=== PATIENT | male | born 1985 | race Caucasian/White ===

== ENCOUNTER 2017-01-16 12:13 | Emergency (ER) | payer BC ==
[~2017-01-16 12:13] MED LIST: Z.0.NO CURRENT MEDS; ZITH250T PO
[2017-01-16 12:15] VITALS: BP 157/86; PULSE 64; RESP 20; TEMP 97.5; O2SAT 100
--- NOTE | 2017-01-16 12:39 | PD ---
Physical Exam Time Seen by Provider: 12:38 Narrative 31 y/o male here with R sided abdominal pain which started this morning. Vital signs reviewed. Seen at triage desk. Awaiting bed placement. Data Data Last Documented VS Vital Signs Date Time Temp Pulse Resp B/P Pulse Ox O2 Delivery O2 Flow Rate FiO2 01/16/17 12:15 97.5 64 20 157/86 100 Room Air [facility] Medical Record Reviewed: Yes Supervised Visit with [place]: Corona Varma Jan 16, 2017 12:39
[2017-01-16] MEDS ORDERED: SODIUM CHLOR 0.9% 1000 ML INJ 1,000 ML IV SCH (13:17)
[2017-01-16] MEDS ORDERED: ONDANSETRON HCL 4 MG/2 ML VIAL IVP ONE (13:30)
[2017-01-16] MEDS ORDERED: SODIUM CHLORIDE 0.9% FLUSH 10 ML FLUSH IV FLUSH PRN (13:30)
[2017-01-16] MEDS ORDERED: MORPHINE SULFATE 4 MG/ML INJ IV PUSH ONE (13:30)
[2017-01-16 13:40] LABS: AUTOMATED NEUTROPHIL # 4.6 TH/MM3 (1.8-7.7); BASOPHIL # 0.1 TH/MM3 (0-0.2); BASOPHIL % 1.1 % (0.0-2.0); BLOOD, URINE NEG (NEG); EOSINOPHIL # 0.4 TH/MM3 (0-0.4); EOSINOPHIL % 5.2 % (0.0-4.0); GLUCOSE,URINE NEG (NEG); HEMATOCRIT 42.5 % (39.0-51.0); HEMO FLAGS DIFF FINAL; KETONE, URINE NEG (NEG); LYMPH % 27.3 % (9.0-44.0); LYMPHOCYTE # 2.2 TH/MM3 (1.0-4.8); MEAN CELL VOLUME 86.3 FL (80.0-100.0); MEAN CORPUSCULAR HEMOGLOBIN 29.7 PG (27.0-34.0); MEAN CORPUSCULAR HGB CONC 34.4 % (32.0-36.0); MONO % 8.4 % (0.0-8.0); MUCUS URINE FEW /lpf (OCC); NITRITE,URINE NEG (NEG); PLATELET COUNT 237 TH/MM3 (150-450); RED BLOOD COUNT 4.93 MIL/MM3 (4.50-5.90); RED CELL DISTRIBUTION WIDTH 13.3 % (11.6-17.2); URINE COLOR YELLOW (YELLW/STRAW)
[2017-01-16 13:42] LABS: COMMENT (UR) CULT NOT INDICATED; CULTURE IF INDICATED CULT NOT INDICATED
[2017-01-16 14:11] LABS: ALT (GPT) 23 U/L (12-78); ANION GAP 7 MEQ/L (5-15); AST (GOT) 15 U/L (15-37); BLOOD UREA NITROGEN 12 MG/DL (7-18); CHLORIDE 106 MEQ/L (98-107); GLOMERULAR FILTRATION RATE 89 ML/MIN (>89); POTASSIUM 4.2 MEQ/L (3.5-5.1); SODIUM (NA) 140 MEQ/L (136-145)
[2017-01-16 14:13] LABS: ALKALINE PHOSPHATASE 85 U/L (45-117); TOTAL BILIRUBIN ADULT 0.7 MG/DL (0.2-1.0)
--- NOTE | 2017-01-16 14:22 | PD ---
HPI Chief Complaint: Abdominal Pain Time Seen by Provider: 13:13 Travel History International Travel<30 days: No Contact w/Intl Traveler<30days: No Traveled to known affect area: No History of Present Illness HPI 31-year-old male came to the emergency room with history of right sided abdominal pain. Patient says the pain started at 5 in the morning and was severe. He has been nauseous but has not vomited. His appetite is pretty low. He did not eat anything this morning. He went to the urgent care where he was diagnosed with possible cholecystitis and was asked to come to the ER. Patient seemed uncomfortable. Vital signs are stable. Pain does not radiate anywhere except for the one spot on the right side in the middle. [facility] Past Medical History Narrative Medical List of his past medical, surgical, social and family history is reviewed from the nursing note. Diminished Hearing: No Endocrine: Yes (GYNECOMASTIA NEG WORK-UP PER PT) GERD: Yes Hypertension: Yes Migraines: Yes Ulcer: Yes Past Surgical History Eye Surgery: Yes Social History Alcohol Use: Yes (SOCIAL) Tobacco Use: No Substance Use: No Allergies-Medications (Allergen,Severity, Reaction): Coded Allergies: Compazine (Verified Allergy, Mild, Twitching, 06/03/12) Phenergan (Verified Allergy, Mild, Twitching, 06/03/12) Reglan (Verified Allergy, Mild, Twitching, 06/03/12) Comments List of his allergies reviewed from the nursing note. Reported Meds & Prescriptions Reported Meds & Active Scripts Active Ibuprofen 600 Mg Tab 600 Mg PO Q6H PRN Nexium (Esomeprazole DR) 20 Mg Capdr 20 Mg PO DAILY Zithromax Z-Michael (Azithromycin) 250 Mg Tab 250 Mg PO DIRECTED 5 Days 500 MG (2 TABLETS) PO ON DAY 1, THEN 250 MG (1 TABLET) PO ON DAYS 2 TO 5. Reported No Current Meds (Miscellaneous Medication) Misc Narrative Medication List of his home medications reviewed from the nursing note. Review of Systems Except as stated in HPI: all other systems reviewed are Neg Physical Exam Narrative GENERAL: Awake, alert, moderate distress SKIN: Focused skin assessment warm/dry. HEAD: Atraumatic. Normocephalic. EYES: Pupils equal and round. No scleral icterus. No injection or drainage. ENT: No nasal bleeding or discharge. Mucous membranes pink and moist. NECK: Trachea midline. No JVD. CARDIOVASCULAR: Regular rate and rhythm. No murmur appreciated. RESPIRATORY: No accessory muscle use. Clear to auscultation. Breath sounds equal bilaterally. GASTROINTESTINAL: Abdomen soft, tenderness on the McBurney's point, nondistended. Hepatic and splenic margins not palpable. MUSCULOSKELETAL: No obvious deformities. No clubbing. No cyanosis. No edema. NEUROLOGICAL: Awake and alert. No obvious cranial nerve deficits. Motor grossly within normal limits. Normal speech. PSYCHIATRIC: Appropriate mood and affect; insight and judgment normal. Data Data Last Documented VS Vital Signs Date Time Temp Pulse Resp B/P Pulse Ox O2 Delivery O2 Flow Rate FiO2 01/16/17 12:15 97.5 64 20 157/86 100 Room Air Orders Complete Blood Count With Diff (01/16/17 13:17) Comprehensive Metabolic Panel (01/16/17 13:17) Lipase (01/16/17 13:17) Urinalysis - C+S If Indicated (01/16/17 13:17) Ct Abd/Pel W/O Iv Contrast (01/16/17 13:17) Iv Access Insert/Monitor (01/16/17 13:17) Ecg Monitoring (01/16/17 13:17) Oximetry (01/16/17 13:17) Morphine Inj (Morphine Inj) (01/16/17 13:30) Ondansetron Inj (Zofran Inj) (01/16/17 13:30) Sodium Chlor 0.9% 1000 Ml Inj (Ns 1000 M (01/16/17 13:17) Sodium Chloride 0.9% Flush (Ns Flush) (01/16/17 13:30) Ondansetron Inj (Zofran Inj) (01/16/17 14:30) Fentanyl Inj (Fentanyl Inj) (01/16/17 14:30) Labs Laboratory Tests Test 01/16/17 13:20 White Blood Count 8.0 TH/MM3 Red Blood Count 4.93 MIL/MM3 Hemoglobin 14.6 GM/DL Hematocrit 42.5 % Mean Corpuscular Volume 86.3 FL Mean Corpuscular Hemoglobin 29.7 PG Mean Corpuscular Hemoglobin 34.4 % Concent Red Cell Distribution Width 13.3 % Platelet Count 237 TH/MM3 Mean Platelet Volume 8.5 FL Neutrophils (%) (Auto) 58.0 % Lymphocytes (%) (Auto) 27.3 % Monocytes (%) (Auto) 8.4 % Eosinophils (%) (Auto) 5.2 % Basophils (%) (Auto) 1.1 % Neutrophils # (Auto) 4.6 TH/MM3 Lymphocytes # (Auto) 2.2 TH/MM3 Monocytes # (Auto) 0.7 TH/MM3 Eosinophils # (Auto) 0.4 TH/MM3 Basophils # (Auto) 0.1 TH/MM3 CBC Comment DIFF FINAL Differential Comment Urine Color YELLOW Urine Turbidity CLEAR Urine pH 7.0 Urine Specific [place] 1.023 Urine Protein NEG mg/dL Urine Glucose (UA) NEG mg/dL Urine Ketones NEG mg/dL Urine Occult Blood NEG Urine Nitrite NEG Urine Bilirubin NEG Urine Urobilinogen LESS THAN 2.0 MG/DL Urine Leukocyte Esterase NEG Urine RBC 1 /hpf Urine WBC 1 /hpf Urine Mucus FEW /lpf Microscopic Urinalysis Comment CULT NOT INDICATED Sodium Level 140 MEQ/L Potassium Level 4.2 MEQ/L Chloride Level 106 MEQ/L Carbon Dioxide Level 27.0 MEQ/L Anion Gap 7 MEQ/L Blood Urea Nitrogen 12 MG/DL Creatinine 0.98 MG/DL Estimat Glomerular Filtration 89 ML/MIN Rate Random Glucose 86 MG/DL Calcium Level 9.0 MG/DL Total Bilirubin 0.7 MG/DL Aspartate Amino Transf 15 U/L (AST/SGOT) Alanine Aminotransferase 23 U/L (ALT/SGPT) Alkaline Phosphatase 85 U/L Total Protein 8.0 GM/DL Albumin 4.1 GM/DL Lipase 296 U/L [facility] Medical Decision Making Medical Screen Exam Complete: Yes Emergency Medical Condition: Yes Medical Record Reviewed: Yes Differential Diagnosis Acute appendicitis, acute cholecystitis, acute diverticulitis, abdominal pain NOS Narrative Course 2:31 PM blood test results of back and are all within normal limit. UA is within normal limit. CT abdomen and pelvis is negative for cholelithiasis or acute appendicitis. Patient initially was given morphine for the pain with Zofran but he got nauseous. He says his pain is still there. I have ordered fentanyl but at this point I will discharge him home since his test have come back normal. Procedures EKG Prior to Arrival: No Diagnosis Primary Impression: Abdominal pain Qualified Code: R10.31 - Right lower quadrant abdominal pain Referrals: Primary Care Physician Additional Instructions: Please return to the ER if the symptoms worsen or any other new concerns. Follow-up with your primary care next couple days if possible. Take clear liquid diet only for the next 48 hours. He can take Tylenol/Motrin/Advil/ ibuprofen if the pain worsens. Med/Other Pt SpecificInfo: Prescription(s) given Scripts Ibuprofen 600 Mg [id number] Mg PO Q6H PRN (Pain/Inflammation) #40 TAB Ref 0 Prov:Soheila Tapia MD 01/16/[address] (Nexium)20 Mg Capdr20 Mg PO DAILY #30 CAP Ref 0 Prov:Soheila Tapia MD 01/16/17 Disposition: 01 DISCHARGE HOME Condition: Stable Soheila Tapia MD Jan 16, 2017 14:22
--- NOTE | 2017-01-16 14:24 | RADRPT ---
EXAM DATE/TIME: 01/16/2017 14:00 [facility] COMPARISON: CT ABDOMEN & PELVIS W CONTRAST, October 11, 2007, 6:27. INDICATIONS : Right side pain starting today. ORAL CONTRAST: No oral contrast ingested. RADIATION DOSE: 12.02 CTDIvol (mGy) MEDICAL HISTORY : Hypertension. Ulcers. SURGICAL HISTORY : None. ENCOUNTER: Initial ACUITY: 1 day PAIN SCALE: 7/10 LOCATION: Right Abdomen TECHNIQUE: Volumetric scanning of the abdomen and pelvis was performed. Using automated exposure control and ad justment of the mA and/or kV according to patient size, radiation dose was kept as low as reasonably achievable to obtain optimal diagnostic quality images. DICOM format image data is available electro nically for review and comparison. FINDINGS: LOWER LUNGS: The visualized lower lungs are clear. LIVER: Homogeneous density without lesion. There is no dilation of the biliary tree. No calcified gallston es. SPLEEN: Normal size without lesion. PANCREAS: Within normal limits. KIDNEYS: Normal in size and shape. There is no mass, stone, or hydronephrosis. ADRENAL GLANDS: Within normal limits. VASCULAR: There is no aortic aneurysm. BOWEL/MESENTERY: The stomach, small bowel, and colon demonstrate no acute abnormality. There is no free intraperitone al air or fluid. ABDOMINAL WALL: Within normal limits. RETROPERITONEUM: Stable lymphadenopathy throughout the left paraaortic region, stable since 2007. BLADDER: No wall thickening or mass. REPRODUCTIVE: Within normal limits. INGUINAL: There is no lymphadenopathy or hernia. MUSCULOSKELETAL: Within normal limits for patient age. CONCLUSION: Normal examination. Stable lymphadenopathy throughout the left paraaortic region, stable since 2007. Harsh Das MD on January 16, 2017 at 14:18 Board Certified Radiologist. This report was verified electronically.
[2017-01-16] MEDS ORDERED: ONDANSETRON HCL 4 MG/2 ML VIAL IV PUSH ONE (14:30)
[2017-01-16] MEDS ORDERED: NEXI20CA PO (14:42)
[2017-01-16] MEDS ORDERED: IBUP-232 PO (15:07)
== END 2017-01-16 15:09 | disposition home or self-care (01) ==
LOC: NEPD 12:13
DX: R10.31 Right lower quadrant pain (principal); R11.0 Nausea; I10 Essential (primary) hypertension; Z87.19 Personal history of other diseases of the digestive system; Z86.69 Personal history of other diseases of the nervous system and sense organs; Z86.39 Personal history of other endocrine, nutritional and metabolic disease
CPT/HCPCS: 74176; 80053; 81001; 83690; 85025; 96361; 96374; 96375; 96376; 99285; J2270; J2405; J3010; J7030

== ENCOUNTER 2017-10-08 13:01 | Emergency (ER) | payer BC, OTHER ==
[~2017-10-08] VITALS: Ht 180.3 cm; Wt 96.0 kg
[~2017-10-08 13:01] MED LIST changes: +IBUP-232 PO; +NEXI20CA PO
[2017-10-08 13:41] VITALS: BP 140/78; PULSE 72; RESP 15; TEMP 98.2; O2SAT 100
[2017-10-08 14:25] VITALS: BP 145/68; PULSE 72; RESP 18; O2SAT 100
[2017-10-08] MEDS ORDERED: HYDR-3583 PO (14:32)
[2017-10-08] MEDS ORDERED: LISI-515 PO (14:32)
[2017-10-08] MEDS ORDERED: CYCL5TAB PO (14:32)
[2017-10-08] MEDS ORDERED: ONDANSETRON HCL 4 MG/2 ML VIAL IV PUSH ONE (14:45)
[2017-10-08] MEDS ORDERED: MORPHINE SULFATE 4 MG/ML INJ IV PUSH ONE ×2 (14:45→17:00)
[2017-10-08] MEDS ORDERED: DEXAMETHASONE SOD PHOS 4 MG/ML VIAL IV PUSH ONE (14:45)
[2017-10-08] MEDS ORDERED: DIAZEPAM 5 MG TAB PO ONE (14:45)
[2017-10-08] MEDS ORDERED: SODIUM CHLORID 0.9% 500 ML INJ 500 ML IV ONE (14:45)
--- NOTE | 2017-10-08 14:47 | PD ---
HPI Chief Complaint: Back/ Neck Pain or Injury Time Seen by Provider: 14:22 Travel History International Travel<30 days: No Contact w/Intl Traveler<30days: No Traveled to known affect area: No History of Present Illness HPI The patient is a 32-year-old male who presents to the emergency department for intractable back pain. The patient states he was doing bent over rows with free weights in the gym yesterday when he developed low back pain. The pain was located in the middle of the lumbar spine, radiated to the low back bilaterally, now radiates down the legs to the feet bilaterally. He also complains of bilateral numbness to lower extremities with minimal weakness , however, is able to ambulate. He denies any urinary incontinence or overflow. Patient went to 2 separate urgent cares yesterday, had an x-ray performed that was unremarkable. He was also seen by chiropractor yesterday, however, states that he has significant pain with manipulation. The patient then went back to the chiropractor earlier today who performed some type of muscle therapy on him, however, he then had difficulty getting off of the table at the chiropractor's office. He was then referred to the emergency department for further evaluation. He denies any nausea, vomiting, abdominal pain, priapism, constipation, or urinary incontinence. He does complain of mild weakness to lower extremities with numbness of both lower extremities, right greater than left. He denies any known history of herniated disc. PFSH Past Medical History Diminished Hearing: No Endocrine: Yes (GYNECOMASTIA NEG WORK-UP PER PT) GERD: Yes Hypertension: Yes Migraines: Yes Ulcer: Yes Past Surgical History Eye Surgery: Yes Social History Alcohol Use: Yes (SOCIAL) Tobacco Use: No Substance Use: No Allergies-Medications (Allergen,Severity, Reaction): Coded Allergies: metoclopramide (Unverified Allergy, Mild, Twitching, 02/11/17) prochlorperazine (Unverified Allergy, Mild, Twitching, 02/11/17) promethazine (Unverified Allergy, Mild, Twitching, 02/11/17) Reported Meds & Prescriptions Reported Meds & Active Scripts Active Reported Hydrocodone-Acetaminophen 10-325 mg Tab 1 Tab PO Q4H PRN Flexeril (Cyclobenzaprine HCl) 5 Mg Tab 5 Mg PO TID Lisinopril 20 Mg Tab 20 Mg PO DAILY Review of Systems Except as stated in HPI: all other systems reviewed are Neg General / Constitutional: No: Fever HENT: No: Neck Stiffness, Neck Pain Cardiovascular: No: Chest Pain or Discomfort Respiratory: No: Shortness of Breath Gastrointestinal: No: Nausea, Vomiting, Abdominal Pain Genitourinary: No: Incontinence Musculoskeletal: Positive: Weakness, Pain Neurologic: Positive: Weakness, Paresthesia, Sensory Disturbance, No: Dizziness , Headache, Change in Mentation Physical Exam Narrative GENERAL: Awake, alert, pleasant 32-year-old male who appears his stated age and is in no acute respiratory distress. SKIN: Focused skin assessment warm/dry. HEAD: Atraumatic. Normocephalic. EYES: Pupils equal and round. No scleral icterus. No injection or drainage. ENT: No nasal bleeding or discharge. Mucous membranes pink and moist. NECK: Trachea midline. No JVD. CARDIOVASCULAR: Regular rate and rhythm. No murmur appreciated. RESPIRATORY: No accessory muscle use. Clear to auscultation. Breath sounds equal bilaterally. GASTROINTESTINAL: Abdomen soft, non-tender, nondistended. No rebound tenderness. Back: Mild midline tenderness in the lumbar region as well as tenderness of the sacroiliac bilaterally. MUSCULOSKELETAL: Strength with flexion of the great toes bilateral 5 out of 5. Plantarflexion is 5 out of 5. Extension of the knees bilateral 5 out of 5. Flexion of the hips bilateral 4+/5, breakaway strength secondary to pain. Positive dorsalis pedal pulses. Positive straight leg on the right at 45 and on the left at 60. NEUROLOGICAL: Awake and alert. No obvious cranial nerve deficits. Motor grossly within normal limits. Normal speech. Sensation is intact but diminished to soft touch lower extremities bilaterally. Knee DTRs and ankle DTRs are 2+ and symmetric. Downward going Babinski. PSYCHIATRIC: Appropriate mood and affect; insight and judgment normal. Data Data Last Documented VS Vital Signs Date Time Temp Pulse Resp B/P (MAP) Pulse Ox O2 Delivery O2 Flow Rate FiO2 10/08/17 17:01 68 17 109/56 (73) 96 Room Air 10/08/17 13:41 98.2 Orders Orders Dexamethasone Inj (Decadron Inj) (10/08/17 14:45) Morphine Inj (Morphine Inj) (10/08/17 14:45) Ondansetron Inj (Zofran Inj) (10/08/17 14:45) Sodium Chlorid 0.9% 500 Ml Inj (Ns 500 M (10/08/17 14:45) Diazepam (Valium) (10/08/17 14:45) Mri L Spine W/O Contrast (10/08/17 ) Morphine Inj (Morphine Inj) (10/08/17 17:00) Ketorolac Inj (Toradol Inj) (10/08/17 17:00) MDM Medical Decision Making Medical Screen Exam Complete: Yes Emergency Medical Condition: Yes Medical Record Reviewed: Yes Interpretation(s) Last Impressions Lumbar Spine MRI 10/08/17 0000 Signed Impressions: Service Date/Time: Sunday, October 08, 2017 15:35 - CONCLUSION: Mild eccentric disc L5-S1 involving the right L5 and right S1 root. This minimal finding. Miguel Jenkins MD FACR Differential Diagnosis Differential diagnosis includes herniated disc, lumbar ago, cauda equina, spinal stenosis, intractable back pain. Narrative Course IV was established and the patient was administered Decadron, morphine, Zofran, and IV fluids. MRI of the lumbar spine without contrast was ordered. MRI of the spine reveals a healing at L5-S1, and is the patient was administered a second dose of morphine, will be placed on Medrol Dosepak, Flexeril, Starke as needed for pain. He is advised to follow-up with his primary physician, may benefit from outpatient physical therapy. The patient will be provided a copy of his MRI results at discharge. Diagnosis Primary Impression: Low back pain potentially associated with radiculopathy Patient Instructions: General Instructions Additional Instructions: Medications as directed. Follow-up with your primary physician. You may benefit from outpatient physical therapy. No heavy lifting. Do not return to work until you are cleared by her occupational physician. Med/Other Pt SpecificInfo: Prescription(s) given Scripts Cyclobenzaprine (Flexeril) 10 Mg Tab 10 MG PO TID for Muscle Spasm, #30 TAB 0 Refills Prov: Yonas Andino MD 10/08/17 Hydrocodone-Acetaminophen (Starke) 5 Mg-325 Mg Tab 1 TAB PO Q6H Y for PAIN, #12 TAB 0 Refills Prov: Yonas Andino MD 10/08/17 Methylprednisolone Dosepak (Medrol Dosepak) 4 Mg Dspk 4 MG PO DIRECTED, #1 DSPK 0 Refills Per Pharmacist direction Prov: Yonas Andino MD 10/08/17 Disposition: 01 DISCHARGE HOME Condition: Stable Yonas Andino MD Oct 08, 2017 14:47
--- NOTE | 2017-10-08 16:38 | RADRPT ---
EXAM DATE/TIME: 10/08/2017 15:35 [facility] COMPARISON: No previous studies available for comparison. INDICATIONS : Severe lower back pain radiating down both legs. MEDICAL HISTORY : Hypertension. SURGICAL HISTORY : eye surgery for lazy eye ENCOUNTER: Subsequent ACUITY: 2 day PAIN SCORE: 8/10 LOCATION: Bilateral leg and lower back TECHNIQUE: Multiplanar multisequence MRI of the lumbar spine was performed without contrast. FINDINGS: The most caudal appearing lumbar vertebra is numbered as L5. VERTEBRAE: Homogeneous signal. Normal alignment. CONUS: Normal level and configuration. T12-L1: The thecal sac has a normal diameter. No evidence of disc bulge or protrusion. The neural foramina are patent bilaterally. L1-L2: The thecal sac has a normal diameter. No evidence of disc bulge or protrusion. The neural foramina are patent bilaterally. L2-L3: The thecal sac has a normal diameter. No evidence of disc bulge or protrusion. The neural foramina are patent bilaterally. L3-L4: The thecal sac has a normal diameter. No evidence of disc bulge or protrusion. The neural foramina are patent bilaterally. L4-L5: The thecal sac has a normal diameter. No evidence of disc bulge or protrusion. The neural foramina are patent bilaterally. L5-S1: Minimal central disc bulge with mild eccentric bulging to the right this touching the right L5 and ri ght S1 roots. This is minimal finding. There are mild degenerative changes of facets. The SI joint s and retroperitoneum are unremarkable. CONCLUSION: Mild eccentric disc L5-S1 involving the right L5 and right S1 root. This minimal fin ding. Miguel Jenkins MD FACR on October 08, 2017 at 16:32 Board Certified Radiologist. This report was verified electronically.
[2017-10-08] MEDS ORDERED: KETOROLAC TROMETHAMINE 30 MG/ML (IVP) VIAL IV PUSH ONE (17:00)
[2017-10-08 17:01] VITALS: BP 109/56; PULSE 68; RESP 17; O2SAT 96
[2017-10-08] MEDS ORDERED: NORC5TAB PO (17:08)
[2017-10-08] MEDS ORDERED: CYCL10TA PO (17:08)
[2017-10-08] MEDS ORDERED: MEDR4PAK PO (17:08)
== END 2017-10-08 17:35 | disposition home or self-care (01) ==
LOC: NEPE 13:01
DX: M54.16 Radiculopathy, lumbar region (principal); R53.1 Weakness; K21.9 Gastro-esophageal reflux disease without esophagitis; I10 Essential (primary) hypertension; Z88.8 Allergy status to other drugs, medicaments and biological substances; Z79.899 Other long term (current) drug therapy
CPT/HCPCS: 72148; 96361; 96374; 96375; 96376; 99284; J1100; J1885; J2270; J2405; J7040